=== PATIENT | male | born 1990 | race Caucasian/White ===

== ENCOUNTER → 2020-10-06 10:07 | Outpatient (CLI) | payer OTHER, SELFPAY ==
[2020-10-06 11:09] LABS: Add Manual Diff / Slide Review NO; Basophils Absolute Auto 0 /uL (0-100); Basophils Percent Auto 0.6 % (0-2); Eosinophils Absolute Auto 100 /uL (0-450); Eosinophils Percent Auto 1.8 % (2-4); Hemoglobin 13.7 g/dL (13.5-17.5); Lymphocytes Absolute Auto 1600 /uL (1100-4500); Lymphocytes Percent Auto 35.6 % (25-40); Mean Corpuscular HGB Conc 33.3 % (30-36); Mean Corpuscular Hemoglobin 28.5 PG (26-34); Mean Corpuscular Volume 85.7 fL (80-100); Monocytes Absolute Auto 400 /uL (0-900); Monocytes Percent Auto 9.5 % (3-14); Neutrophils Absolute Auto 2300 /uL (1500-7000); Neutrophils Percent Auto 52.5 % (50-75); Platelet Count 216 X10^3/uL (150-400); Red Blood Cell Count 4.79 X10^6/uL (4.5-5.9); Red Cell Distribution Width 13.1 % (11.6-14.8); White Blood Cell Count 4.4 X10^3/uL (4.5-11.0)
[2020-10-06 11:22] LABS: Alanine Aminotransferase 14 IU/L (<50); Albumin 4.4 g/dL (3.5-5.0); Albumin Globulin Ratio 1.6 (1.0-2.8); Alkaline Phosphatase 53 U/L (38-126); Aspartate Aminotransferase 23 IU/L (17-59); Bilirubin Total 0.5 mg/dL (0.2-1.3); Blood Urea Nitrogen 18 mg/dL (9-20); Carbon Dioxide 27 mmol/L (22-32); Chloride 103 mmol/L (98-107); Estimated Glomerular Filt Rate > 60.0 mL/min (>60); Globulin 2.8 g/dL (1.7-4.1); Glucose 95 mg/dL (70-100); HEMOLYSIS < 15 (0-50); Potassium 4.2 mmol/L (3.4-5.1); Sodium 137 mmol/L (137-145); Total Protein 7.2 g/dL (6.3-8.2)
== END ==
PROVIDERS: Referring Provider Physician Assistant; Visit Provider Physician Assistant
DX: K62.5 Hemorrhage of anus and rectum (principal)
CPT/HCPCS: 36415; 80053; 85025

== ENCOUNTER → 2021-01-04 16:27 | Outpatient (CLI) | payer OTHER, SELFPAY ==
[2021-01-04 18:18] LABS: Add Manual Diff / Slide Review NO; Basophils Absolute Auto 0 /uL (0-100); Basophils Percent Auto 0.6 % (0-2); Eosinophils Absolute Auto 100 /uL (0-450); Hematocrit 40.3 % (41-53); Hemoglobin 13.1 g/dL (13.5-17.5); Lymphocytes Absolute Auto 2400 /uL (1100-4500); Lymphocytes Percent Auto 40.9 % (25-40); Mean Corpuscular HGB Conc 32.6 % (30-36); Mean Corpuscular Hemoglobin 26.7 PG (26-34); Monocytes Absolute Auto 500 /uL (0-900); Monocytes Percent Auto 8.6 % (3-14); Neutrophils Absolute Auto 2800 /uL (1500-7000); Neutrophils Percent Auto 47.9 % (50-75); Platelet Count 230 X10^3/uL (150-400); Red Blood Cell Count 4.91 X10^6/uL (4.5-5.9); White Blood Cell Count 5.8 X10^3/uL (4.5-11.0)
== END ==
PROVIDERS: PCP Family Medicine; Referring Provider Family Medicine; Visit Provider Family Medicine
DX: J02.8 Acute pharyngitis due to other specified organisms (principal); B96.89 Other specified bacterial agents as the cause of diseases classified elsewhere
CPT/HCPCS: 36415; 85025

== ENCOUNTER → 2021-05-07 14:30 | Outpatient (CLI) | payer OTHER, SELFPAY ==
[2021-05-07 15:33] LABS: COVID19 -Nasal RAPID Negative (Negative)
== END ==
PROVIDERS: PCP Family Medicine; Visit Provider Physician Assistant
DX: Z20.822 Contact with and (suspected) exposure to COVID-19 (principal)
CPT/HCPCS: 87635

== ENCOUNTER 2022-04-30 18:27 | Emergency (ER) | payer OTHER, SELFPAY ==
[2022-04-30 18:58] VITALS: BP 127/82; PULSE 72; RESP 20; TEMP 36.8; O2SAT 96; BMI 29.2
--- NOTE | 2022-04-30 21:03 | ED_ITS ---
HPI - Skin/Abscess/Foreign Bdy General Chief complaint: Skin/Abscess/Foreign Body Stated complaint: HEMORRHOIDS Time Seen by Provider: 04/30/22 21:03 Source: patient Mode of arrival: Ambulatory History of Present Illness HPI narrative: 31-year-old male smoker with history of chronic hemorrhoids presents to the emergency department for the 2nd time this week with a chief complaint of occasional rectal bleeding, hemorrhoids and rectal pain. He states that he has been having trouble with hemorrhoids for many years and despite his use ov [id number] medications he has ongoing trouble. He states that he routinely has a small hemorrhoid on the left side of his anus but frequently has a right- sided hemorrhoid that seems to go in and out each day. He has been in a sufficient amount of pain that he has been unable to work for least the past few weeks. He had been seen and evaluated by his primary care provider recently and was instructed to present to [facility] Emergency Department to obtain complete workup which was done just a few days ago including labs which were unremarkable and a CT of his abdomen and pelvis with IV contrast demonstrated no significant findings. He is not dizzy nor weak or lightheaded and has had no fever or chills. He denies chest pain or shortness of breath. He denies other abdominal pain, nausea, vomiting or diarrhea. Related Data Home Medications Medication Instructions Recorded Confirmed multivitamin 1 tab PO DAILY 01/04/21 01/04/21 Previous Rx's Medication Instructions Recorded hydrocortisone acetate 25 mg 25 mg AR BID #24 ea 01/04/21 rectal suppository (Anusol-HC) triamcinolone acetonide 0.5 % 1 applic topical BID #15 grams 01/04/21 topical cream dibucaine 1 % rectal ointment 1 applic AR TID PRN rectal 05/01/22 discomfort #56 grams Allergies Allergy/AdvReac Type Severity Reaction Status Date / Time acetaminophen [From Tylenol] Allergy Severe Hives, Verified 04/30/22 19:18 loss of consciousness Fish Containing Products Allergy Severe Head Verified 04/30/22 19:18 swollen Review of Systems Review of Systems Narrative: GENERAL: Denies chills, fatigue, malaise, fever, sweats. HEENT: Denies sinus pain, ear pain, sore throat, difficulty swallowing, dizziness. RESPIRATORY: Denies dyspnea, cough, wheezing, hemoptysis, sputum. CARDIOVASCULAR: Denies chest pain, palpitations, orthopnea, edema, GASTROINTESTINAL: See HPI : Denies dysuria, frequency, incontinence, hematuria, urinary retention. MUSCULOSKELETAL: denies weakness, joint pain, or bony pain SKIN: Denies rash, skin lesions, or other NEUROLOGIC: Denies weakness, headache, numbness, change in speech, confusion, seizures, incoordination. PSYCHIATRIC: No concerning psychosocial issues. 12 point review of systems is negative except for those stated above Patient History Medical History Acute bacterial pharyngitis Contact dermatitis Headache (~2012) Hearing loss Internal hemorrhoid Family History Grandmother Rheumatoid arthritis Social History Smoking Status: Former smoker Smokeless tobacco user: chewing tobacco (2 cans per week ) quit status: considering quitting alcohol intake: current (1 drink per year ) substance use type: marijuana (2 grams per month vape ) Smoking Status: Former smoker Exam Narrative Exam Narrative: GENERAL: [31] year old patient appears stated age. Well-developed patient, in mild distress. Obviously uncomfortable and frustrated, at times tearful HEAD: Atraumatic. Normocephalic. EYES: Pupils equal round and reactive. Extraocular motions intact. No scleral icterus. No injection or drainage. ENT: Nose without bleeding, purulent drainage. Throat without erythema, tonsillar hypertrophy or exudate. Airway patent. NECK: Trachea midline. Non tender CARDIOVASCULAR: Regular rate and rhythm without murmurs, gallops, or rubs. RESPIRATORY: Clear to auscultation. Breath sounds equal bilaterally. No wheezes, rales, or rhonchi. GASTROINTESTINAL: Abdomen soft, non-tender, nondistended. RECTAL: Small external hemorrhoid without evidence of thrombosis. No palpable internal hemorrhoids or active bleeding. No obvious evidence of fissure EXTREMITIES: No edema or joint tenderness. BACK: Nontender without deformity or crepitance. No flank tenderness. NEURO: AOx3. SKIN: No rash or erythema of visible areas Initial Vital Signs Initial Vital Signs: Vital Signs Temperature 98.2 F 04/30/22 18:58 Pulse Rate 72 04/30/22 18:58 Respiratory Rate 20 04/30/22 18:58 Blood Pressure 127/82 04/30/22 18:58 Pulse Oximetry 96 04/30/22 18:58 Oxygen Delivery Method 04/30/22 18:58 Course Orders Ordered: Discontinued Medications Sodium Chloride (Normal Saline 0.9%) 1,000 mls @ 1,000 mls/hr IV BOLUS ONE Stop: 04/30/22 22:14 Last Infusion: 04/30/22 22:40 Dose: 0 mls/hr Documented By: Admin: 04/30/22 21:39 Dose: 1,000 mls/hr Documented By: AP Vital Signs Vital signs: Vital Signs - 8 hr 04/30/22 18:58 Temperature 98.2 F Pulse Rate 72 Respiratory Rate 20 Blood Pressure 127/82 Pulse Oximetry 96 Oxygen Delivery Method Room Air MDM - Skin/Abscess/Foreign Bdy Lab Data Result diagrams: 04/30/22 21:40 04/30/22 21:40 Labs: Lab Results 04/30/22 04/30/22 04/30/22 Range/Units 21:40 21:40 21:40 WBC 8.4 (4.5-11.0) X10^3/uL RBC 5.24 (4.5-5.9) X10^6/uL Hgb 14.9 (13.5-17.5) g/dL Hct 44.8 (41-53) % MCV 85.5 (80-100) fL MCH 28.4 (26-34) PG MCHC 33.3 (30-36) % RDW 13.1 (11.6-14.8) % Plt Count 260 (150-400) X10^3/uL Neut % (Auto) 64.9 (50-75) % Lymph % (Auto) 28.1 (25-40) % [place] % (Auto) 6.1 (3-14) % Eos % (Auto) 0.6 L (2-4) % Baso % (Auto) 0.3 (0-2) % Neut # (Auto) 5400 (7353-7317) /uL Lymph # (Auto) 2400 (7146-3565) /uL [place] # (Auto) 500 (0-900) /uL Eos # (Auto) 100 (0-450) /uL Baso # (Auto) 0 (0-100) /uL Sodium 138 (137-145) mmol/L Potassium 3.6 (3.4-5.1) mmol/L Chloride 99 (98-107) mmol/L Carbon Dioxide 27 (22-32) mmol/L BUN 13 (9-20) mg/dL Creatinine 0.87 (0.66-1.25) mg/dL Estimated GFR > 60 (>60) mL/min BUN/Creatinine Ratio 14.9 (6-22) Glucose 87 (70-100) mg/dL Lactate 1.5 (0.7-2.1) mmol/L Calcium 9.1 (8.4-10.2) mg/dL Total Bilirubin 1.6 H (0.2-1.3) mg/dL AST 20 (17-59) IU/L ALT 19 (<50) IU/L Alkaline Phosphatase 71 (38-126) U/L Total Protein 8.1 (6.3-8.2) g/dL Albumin 4.8 (3.5-5.0) g/dL Globulin 3.3 (1.7-4.1) g/dL Albumin/Globulin Ratio 1.5 (1.0-2.8) Imaging Data CT scan - abdomen/pelvis: Radiologist's Impression: [place] [address] CT Scan Report Signed Patient: Harsha Fink MR#: [id number] : 1990 Acct:[id number] Age/Sex: 31 / M Date of Service: 04/30/22 Loc: ED Accession Number: [id number] ?? Procedure: CT abdomen pelvis w con Ordering Provider: Tyshawn Polo D.O. PROCEDURE:? CT ABDOMEN PELVIS W CON ? INDICATIONS:? severe RLQ pain, worsening rectal pain, not eating ? TECHNIQUE:? After the administration of IV contrast, axial sections were acquired from the l tien bases to the pubic symphysis.? Coronal and sagittal reformats were performed.? For radiation dose reduction, the following was used:? automated exposure control, adjustment of mA and/or kV according to patient size. ? COMPARISON:? [facility], CT, CT ABDOMEN PELVIS WITH CONTRAST, 04/06, 21:45. ? FINDINGS:? Image quality:? Excellent.? ? Lung bases:? Unremarkable.? ? Heart:? No significant findings. ? ? ABDOMEN: Liver:? Hepatic steatosis is present. Gallbladder:? Unremarkable.? ? Biliary ducts:? Unremarkable.? ? Pancreas:? Unremarkable.? ? Spleen:? Unremarkable.? ? Adrenal Glands:? Unremarkable.? ? Kidneys and Ureters:? Unremarkable.? ? ? Stomach and Bowel:? Stomach, small bowel loops, and colon are unremarkable.? Appendix is normal. Peritoneum:? No abnormal intraperitoneal fluid.? No free air.? ? Ventral Wall: ? No hernia.? Abdominal Nodes:? No retroperitoneal or mesenteric adenopathy by size criteria.? Subcentimeter right lower quadrant lymph nodes are present. Vessels:? Aorta and inferior vena cava are normal in size.? ? PELVIS: Pelvic Organs:? Unremarkable.? ? Bladder:? Unremarkable.? ? Pelvic Nodes: No enlarged lymph nodes.? Miscellaneous: No inguinal hernias are seen. ? ? ? Bones:? Unremarkable.? IMPRESSION:? ? Stable interval exam. ? Appendix is normal.? Several scattered subcentimeter right lower quadrant lymph nodes are unchanged.? Given normal appendix, this could be related to mesenteric adenitis and recommend clinical correlation. ? ? Dictated by: Beata Croft M.D. on 04/30/2022 at 22:32 ? ? Approved by: Beata Croft M.D. on 04/30/2022 at 22:34 ? MDM Narrative Medical decision making narrative: [31-year-old male with history of hemorrhoids presents with rectal pain] Multiple etiologies for patient's symptoms considered including, but not limited to: [Hemorrhoid, thrombosed hemorrhoid, fissure, perirectal abscess, foreign body versus other] Prior Charts reviewed: Including recent emergency department visit at [facility] Labs reviewed and interpreted by myself: No significant abnormal findings Imaging reviewed: No significant findings such as appendicitis, perforation, bowel obstruction or perirectal abscess, there are scattered lymph nodes in the right lower quadrant which may be consistent with mesenteric adenitis, however patient does not have pain in the right lower quadrant Patient's symptoms improved over duration of stay with above-stated therapies. Findings and discharge diagnosis discussed with patient/family followed by verbalization of understanding Return precautions discussed with patient/family whom verbalize understanding of diagnosis and plan Discharge Plan Departure Patient Disposition: Home Clinical Impression: Hemorrhoid, Anal or rectal pain Instructions: DI for Hemorrhoids Activity Restrictions/Additional Instructions: *You have been diagnosed with [rectal pain with small external hemorrhoid. Lab work and CT scan are very reassuring and there is no evidence of diverticulitis, abscess, bowel obstruction or other] *What to do: *Please continue to take your regular medications as directed. [ x] New medication prescriptions sent to your pharmacy: [[facility]] [ ] New medication written as a paper prescription [ ] No new medications given *Please follow up with your primary care provider in 2-3 days, call for an appointment. Let them know you were seen in the Emergency Department and that we ask that you be seen in follow up. We will electronically transmit a record of today's note if your PCP is in our system * as we discussed, please consider the use of daily [id number] stool softener such as MiraLax which can help reduce the likelihood of you straining on the toilet which will certainly worsened your symptoms. *Return to Emergency Department if you should have any new, worsening or concerning symptoms, such as [fever greater than 101 F, shaking chills, worsening pain, persistent vomiting or other bothersome symptoms] Prescriptions: New dibucaine 1 % ointment 1 applic AR TID PRN (Reason: rectal discomfort) Qty: 56 0RF No Action multivitamin Tablet 1 tab PO DAILY triamcinolone acetonide 0.5 % cream 1 applic topical BID Qty: 15 1RF Rx Instructions: apply to affected areas hydrocortisone acetate [Anusol-HC] 25 mg suppository 25 mg AR BID Qty: 24 1RF Rx Instructions: use prn hemorrhoids Referrals: Kim Brothers MD [Physician] - Neil Osei DO [Primary Care Provider] - Visit Report Forms: Patient Portal/API
--- NOTE | 2022-04-30 21:15 | DI.CT.S_ITS ---
PROCEDURE: CT ABDOMEN PELVIS W CON INDICATIONS: severe RLQ pain, worsening rectal pain, not eating TECHNIQUE: After the administration of IV contrast, axial sections were acquired from the lung bases to the pubic symphysis. Coronal and sagittal reformats were performed. For radiation dose reduction, the following was used: automated exposure control, adjustment of mA and/or kV according to patient size. COMPARISON: [facility], CT, CT ABDOMEN PELVIS WITH CONTRAST, 04/26/2022, 21:45. FINDINGS: Image quality: Excellent. Lung bases: Unremarkable. Heart: No significant findings. ABDOMEN: Liver: Hepatic steatosis is present. Gallbladder: Unremarkable. Biliary ducts: Unremarkable. Pancreas: Unremarkable. Spleen: Unremarkable. Adrenal Glands: Unremarkable. Kidneys and Ureters: Unremarkable. Stomach and Bowel: Stomach, small bowel loops, and colon are unremarkable. Appendix is normal. Peritoneum: No abnormal intraperitoneal fluid. No free air. Ventral Wall: No hernia. Abdominal Nodes: No retroperitoneal or mesenteric adenopathy by size criteria. Subcentimeter right lower quadrant lymph nodes are present. Vessels: Aorta and inferior vena cava are normal in size. PELVIS: Pelvic Organs: Unremarkable. Bladder: Unremarkable. Pelvic Nodes: No enlarged lymph nodes. Miscellaneous: No inguinal hernias are seen. Bones: Unremarkable. IMPRESSION: Stable interval exam. Appendix is normal. Several scattered subcentimeter right lower quadrant lymph nodes are unchanged. Given normal appendix, this could be related to mesenteric adenitis and recommend clinical correlation. Dictated by: Beata Croft M.D. on 04/30/2022 at 22:32 Approved by: Beata Croft M.D. on 04/30/2022 at 22:34
[2022-04-30] MEDS: SODIUM CHLORIDE 0.9% 1,000 ML 1000 ML IV (21:39)
[2022-04-30 21:48] LABS: Add Manual Diff / Slide Review NO; Basophils Absolute Auto 0 /uL (0-100); Basophils Percent Auto 0.3 % (0-2); Eosinophils Absolute Auto 100 /uL (0-450); Eosinophils Percent Auto 0.6 % (2-4); Hematocrit 44.8 % (41-53); Hemoglobin 14.9 g/dL (13.5-17.5); Lymphocytes Absolute Auto 2400 /uL (1100-4500); Lymphocytes Percent Auto 28.1 % (25-40); Mean Corpuscular HGB Conc 33.3 % (30-36); Mean Corpuscular Hemoglobin 28.4 PG (26-34); Mean Corpuscular Volume 85.5 fL (80-100); Monocytes Absolute Auto 500 /uL (0-900); Monocytes Percent Auto 6.1 % (3-14); Neutrophils Absolute Auto 5400 /uL (1500-7000); Neutrophils Percent Auto 64.9 % (50-75); Platelet Count 260 X10^3/uL (150-400); Red Blood Cell Count 5.24 X10^6/uL (4.5-5.9); Red Cell Distribution Width 13.1 % (11.6-14.8); White Blood Cell Count 8.4 X10^3/uL (4.5-11.0)
[2022-04-30 21:58] LABS: Alanine Aminotransferase 19 IU/L (<50); Albumin 4.8 g/dL (3.5-5.0); Albumin Globulin Ratio 1.5 (1.0-2.8); Alkaline Phosphatase 71 U/L (38-126); Aspartate Aminotransferase 20 IU/L (17-59); BUN Creatinine Ratio 14.9 (6-22); Bilirubin Total 1.6 mg/dL (0.2-1.3); Blood Urea Nitrogen 13 mg/dL (9-20); Calcium 9.1 mg/dL (8.4-10.2); Carbon Dioxide 27 mmol/L (22-32); Chloride 99 mmol/L (98-107); Estimated Glomerular Filt Rate > 60 mL/min (>60); Globulin 3.3 g/dL (1.7-4.1); Glucose 87 mg/dL (70-100); HEMOLYSIS < 15 (0-50); Lactate (Lactic Acid) 1.5 mmol/L (0.7-2.1); Potassium 3.6 mmol/L (3.4-5.1); Sodium 138 mmol/L (137-145); Total Protein 8.1 g/dL (6.3-8.2)
[2022-05-01 01:04] VITALS: BP 128/74; PULSE 78; RESP 18; TEMP 36.4; O2SAT 98
== END 2022-05-01 01:05 | disposition home or self-care (01) ==
PROVIDERS: Emergency Provider Emergency Medicine; PCP Family Medicine
DX: K64.9 Unspecified hemorrhoids (principal); K62.89 Other specified diseases of anus and rectum
CPT/HCPCS: 36415; 74177; 80053; 83605; 85025; 96360; 99284; Q9967

== ENCOUNTER 2023-11-14 08:12 | Emergency (ER) | payer OTHER, SELFPAY ==
[2023-11-14] VITALS (13 sets, daily range): BP systolic 113–149; BP diastolic 57–88; PULSE 59–88; RESP 16–18; TEMP 36.8; O2SAT 96–100; BMI 28.5
[2023-11-14] MEDS: cefTRIAXone 1,000 MG in SODIUM CHLORIDE 0.9% 100 ML 200 MG IV (08:26)
[2023-11-14] MEDS: SODIUM CHLORIDE 0.9% 1,000 ML 1000 ML IV (08:27)
[2023-11-14] MEDS: DEXAMETHASONE 10 MG/ML VIAL IV (08:27)
[2023-11-14 08:37] LABS: Add Manual Diff / Slide Review NO; Basophils Absolute Auto 0 /uL (0-100); Basophils Percent Auto 0.6 % (0-2); Eosinophils Absolute Auto 200 /uL (0-450); Eosinophils Percent Auto 2.5 % (2-4); Hematocrit 43.7 % (41-53); Lymphocytes Absolute Auto 2900 /uL (1100-4500); Lymphocytes Percent Auto 38.8 % (25-40); Mean Corpuscular HGB Conc 34.2 % (30-36); Mean Corpuscular Hemoglobin 29.4 PG (26-34); Mean Corpuscular Volume 85.9 fL (80-100); Monocytes Absolute Auto 600 /uL (0-900); Monocytes Percent Auto 8.2 % (3-14); Neutrophils Absolute Auto 3800 /uL (1500-7000); Neutrophils Percent Auto 49.9 % (50-75); Platelet Count 216 X10^3/uL (150-400); Red Blood Cell Count 5.09 X10^6/uL (4.5-5.9); Red Cell Distribution Width 12.9 % (11.6-14.8); White Blood Cell Count 7.6 X10^3/uL (4.5-11.0)
--- NOTE | 2023-11-14 08:48 | PC.NURSE ---
Pt arrived to ED today with c/o swollen uvula, sore throat and unable to swallow saliva. Voice muffled and pt using emisis bag to spit. Pt reports that he was working yesterday and there was a lot of black dust in the air. Went home from work and felt fine but woke up around 11pm feeling like he had a phlegm ball in his throat but could not swallow. Pt woke up this morning and noticed that his uvula was completely swollen. Considerable edema noted in uvula. Pt denies any n/v, sob, difficult breathing or cp. Pt a&ox4.
[2023-11-14 08:54] LABS: Alanine Aminotransferase 35 IU/L (<50); Albumin 4.4 g/dL (3.5-5.0); Albumin Globulin Ratio 1.5 (1.0-2.8); Alkaline Phosphatase 62 U/L (38-126); Aspartate Aminotransferase 33 IU/L (17-59); BUN Creatinine Ratio 14.3 (6-22); Bilirubin Total 0.6 mg/dL (0.2-1.3); Blood Urea Nitrogen 14 mg/dL (9-20); Calcium 8.8 mg/dL (8.4-10.2); Carbon Dioxide 27 mmol/L (22-32); Chloride 108 mmol/L (98-107); Estimated Glomerular Filt Rate > 60 mL/min (>60); Globulin 2.9 g/dL (1.7-4.1); Glucose 103 mg/dL (70-100); HEMOLYSIS 24 (0-50); Potassium 4.2 mmol/L (3.4-5.1); Sodium 141 mmol/L (137-145); Total Protein 7.3 g/dL (6.3-8.2)
[2023-11-14] MEDS: RACEPINEPHRINE 0.5 ML NEB INH (09:06)
--- NOTE | 2023-11-14 09:34 | ED.URI ---
HPI - URI/Sore Throat General Chief Complaint: Upper Respiratory Symptoms Stated Complaint: diff breathing, throat swelling Time Seen by Provider: 11/14/23 08:14 Source: patient Mode of arrival: Ambulatory History of Present Illness HPI Narrative: Patient is a 33-year-old healthy male presents today with difficulty breathing. 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 However this morning he woke up felt like he was choking on his uvula he is able to swallow but feels his uvula hanging down on his tongue. It is causing him to gag. He is able to manage his secretions Related Data Home Medications Medication Instructions Recorded Confirmed multivitamin 1 tab PO DAILY 01/04/21 01/04/21 Previous Rx's Medication Instructions Recorded hydrocortisone acetate 25 mg 25 mg CA BID #24 ea 01/04/21 rectal suppository (Anusol-HC) triamcinolone acetonide 0.5 % 1 applic topical BID #15 grams 01/04/21 topical cream dibucaine 1 % rectal ointment 1 applic CA TID PRN rectal 05/01/22 discomfort #56 grams prednisone 20 mg tablet 40 mg (2 x 20 mg) PO DAILY #10 tabs 11/14/23 Allergies Allergy/AdvReac Type Severity Reaction Status Date / Time acetaminophen [From Tylenol] Allergy Severe Hives, Verified 11/14/23 08:21 loss of consciousness Fish Containing Products Allergy Severe Head Verified 11/14/23 08:21 swollen Patient History Medical History Hearing loss Headache (~2012) Contact dermatitis Internal hemorrhoid Acute bacterial pharyngitis Family History Grandmother Rheumatoid arthritis Social History Smoking Status: Current every day smoker Smokeless tobacco user: chewing tobacco (2 cans per week ) quit status: considering quitting alcohol intake: current (1 drink per year ) substance use type: marijuana (2 grams per month vape ) Smoking Status: Current every day smoker tobacco type: smokeless tobacco Substance Use Type: does not use Exam Initial Vital Signs Initial Vital Signs: Vital Signs Pulse Rate 70 11/14/23 08:17 Pulse Oximetry 99 11/14/23 08:17 GENERAL: Alert 33-year-old male sitting tripoding HEENT: Head atraumatic,EOMI, pupils reactive, face symmetric, moist mucous membranes PHARYNX: Airway is patent uvula is swollen no significant enlarged tonsils or exudate CARDIOVASCULAR: Regular rate and rhythm without murmurs, rubs or gallops. RESPIRATORY: Breath sounds equal bilaterally, no wheezes rales or rhonchi. EXTREMITIES: Normal range of motion, no clubbing or edema. Neurovascularly intact NEUROLOGICAL: Alert and oriented x4. SKIN: Warm, dry, no laceration, no petechiae, no rashes or lesions. Course Orders Ordered: ED Orders 11/14/23 08:20 CBC Auto Diff [Complete Blood Count AUTO DIFF] Stat CMP [Comprehensive Metabolic Panel] Stat 11/14/23 08:38 Respiratory Panel (Film Array) Stat Discontinued Medications Dexamethasone (Dexamethasone 10 Mg/Ml Vial) 10 mg IV NOW ONE Stop: 11/14/23 08:19 Last Admin: 11/14/23 08:27 Dose: 10 mg Documented By: ROSS Epinephrine (Racepinephrine 0.5 Ml Neb) 0.5 ml INH NOW ONE Stop: 11/14/23 08:53 Last Admin: 11/14/23 09:06 Dose: 0.5 ml Documented By: AMAN Sodium Chloride (Normal Saline 0.9%) 1,000 mls @ 1,000 mls/hr IV BOLUS ONE Stop: 11/14/23 09:17 Last Infusion: 11/14/23 10:20 Dose: Infused Documented By: Admin: 11/14/23 08:27 Dose: 1,000 mls/hr Documented By: ROSS Ceftriaxone Sodium 1,000 mg/ (Sodium Chloride) 100 mls @ 200 mls/hr IV NOW ONE Stop: 11/14/23 08:22 Last Infusion: 11/14/23 09:09 Dose: Infused Documented By: Admin: 11/14/23 08:26 Dose: 200 mls/hr Documented By: ROSS Vital Signs Vital signs: Vital Signs - 8 hr 11/14/23 08:17 11/14/23 08:18 11/14/23 08:30 Temperature 98.2 F Pulse Rate 70 71 63 Respiratory Rate 18 Blood Pressure 149/88 H Pulse Oximetry 99 100 97 Oxygen Delivery Method Room Air 11/14/23 08:31 11/14/23 08:31 11/14/23 09:00 Temperature Pulse Rate 64 Respiratory Rate Blood Pressure 137/83 118/83 Pulse Oximetry 96 Oxygen Delivery Method 11/14/23 09:00 11/14/23 09:09 11/14/23 09:30 Temperature Pulse Rate 59 L 88 Respiratory Rate 16 Blood Pressure 120/77 Pulse Oximetry 99 98 Oxygen Delivery Method Room Air 11/14/23 09:30 11/14/23 10:00 11/14/23 10:00 Temperature Pulse Rate 66 66 Respiratory Rate Blood Pressure 118/81 Pulse Oximetry 97 99 Oxygen Delivery Method 11/14/23 10:30 11/14/23 10:30 11/14/23 11:00 Temperature Pulse Rate 60 59 L Respiratory Rate Blood Pressure 126/78 Pulse Oximetry 96 97 Oxygen Delivery Method 11/14/23 11:01 11/14/23 11:01 11/14/23 11:30 Temperature Pulse Rate 60 62 Respiratory Rate Blood Pressure 122/66 Pulse Oximetry 98 97 Oxygen Delivery Method 11/14/23 11:30 11/14/23 12:00 11/14/23 12:00 Temperature Pulse Rate 65 Respiratory Rate Blood Pressure 113/69 118/57 L Pulse Oximetry 97 Oxygen Delivery Method MDM - URI/Sore Throat Lab Data 11/14/23 08:20 11/14/23 08:20 Labs: Lab Results 11/14/23 11/14/23 Range/Units 08:20 08:38 WBC 7.6 (4.5-11.0) X10^3/uL RBC 5.09 (4.5-5.9) X10^6/uL Hgb 15.0 (13.5-17.5) g/dL Hct 43.7 (41-53) % MCV 85.9 (80-100) fL MCH 29.4 (26-34) PG MCHC 34.2 (30-36) % RDW 12.9 (11.6-14.8) % Plt Count 216 (150-400) X10^3/uL Neut % (Auto) 49.9 L (50-75) % Lymph % (Auto) 38.8 (25-40) % [place] % (Auto) 8.2 (3-14) % Eos % (Auto) 2.5 (2-4) % Baso % (Auto) 0.6 (0-2) % Neut # (Auto) 3800 (4496-9045) /uL Lymph # (Auto) 2900 (6421-4449) /uL [place] # (Auto) 600 (0-900) /uL Eos # (Auto) 200 (0-450) /uL Baso # (Auto) 0 (0-100) /uL Sodium 141 (137-145) mmol/L Potassium 4.2 (3.4-5.1) mmol/L Chloride 108 H (98-107) mmol/L Carbon Dioxide 27 (22-32) mmol/L BUN 14 (9-20) mg/dL Creatinine 0.98 (0.66-1.25) mg/dL Estimated GFR > 60 (>60) mL/min BUN/Creatinine Ratio 14.3 (6-22) Glucose 103 H (70-100) mg/dL Calcium 8.8 (8.4-10.2) mg/dL Total Bilirubin 0.6 (0.2-1.3) mg/dL AST 33 (17-59) IU/L ALT 35 (<50) IU/L Alkaline Phosphatase 62 (38-126) U/L Total Protein 7.3 (6.3-8.2) g/dL Albumin 4.4 (3.5-5.0) g/dL Globulin 2.9 (1.7-4.1) g/dL Albumin/Globulin Ratio 1.5 (1.0-2.8) Chlamy pneumoniae PCR Not detected (Not Detect) Adenovirus (PCR) Not detected (Not Detect) B.parapertussis DNA PCR Not detected (Not Detecte) Coronavirus OC43 (PCR) Not detected (Not Detect) Coronavirus HKU1 (PCR) Not detected (Not Detect) Coronavirus 229E (PCR) Not detected (Not Detect) SARS-CoV-2 (PCR) Not detected (Not Detecte) Coronavirus NL63 (PCR) Not detected (Not Detect) Human Metapneumovir PCR Not detected (Not Detect) Influenza Type A (PCR) Not detected (Not Detect) Influenza Type B (PCR) Not detected (Not Detect) M. pneumoniae (PCR) Not detected (Not Detect) Parainfluenza 1 (PCR) Not detected (Not Detect) Parainfluenza 2 (PCR) Not detected (Not Detect) Parainfluenza 3 (PCR) Not detected (Not Detect) Parainfluenza 4 (PCR) Not detected (Not Detect) RSV (PCR) Not detected (Not Detect) Entero/Rhino (PCR) Not detected (Not Detect) MDM Narrative Medical decision making narrative: Patient 33-year-old male immunizations up-to-date presents today with acute epiglottitis. Initially sitting over bed gagging but not actually vomiting. He can manage some secretions. Airway does appear pain on exam uvula is swollen. He is given a L of fluid dexamethasone and Rocephin. Still is having some muffled voice. Racemic epi was nebulized and he had much improvement. Now able to sit upright 10:41 patient is able to sit upright he is swallowing secretions managing p.o. fluids 12:08 patient is tolerating fluids continues to maintain airway and managing secretions is overall feeling better. Discussed strict return precautions Patient is immunized so low risk for Haemophilus influenza Critical Care Time Critical Care Time Critical Care Time: Yes Total Critical Care Time: 35 Attestation: The high probability of a clinically significant, sudden or life threatening deterioration of the respiratory system(s) required my full and direct attention, intervention and personal management. The aggregate critical care time was 35 minutes. This time is in addition to time spent performing reported procedures but includes the following: [x] Data Review and interpretation [x] Patient assessment and monitoring of vital signs [x] Documentation [x] Medication orders and management Discharge Plan Departure Patient Disposition: Home Clinical Impression: Acute epiglottitis Instructions: DI for Esophagitis Activity Restrictions/Additional Instructions: *You have been diagnosed with epiglottitis *What to do: At this time I do recommend called soft foods and liquids. This will take a couple days to clear up. If at any point you should notice it it is harder for you to breathe or swallow please return to the emergency department as soon as possible *Continue to take medications as directed Prednisone 40 mg once a day for 5 days *Follow up with your primary care provider in 2-3 days or call [phone] *Return to ER if you should have increased difficulty breathing inability to swallow your own spit increased pain not tolerating fluids [or] any new, worsening or concerning symptoms Prescriptions: New prednisone 20 mg tablet 40 mg PO DAILY Qty: 10 0RF No Action multivitamin Tablet 1 tab PO DAILY triamcinolone acetonide 0.5 % cream 1 applic topical BID Qty: 15 1RF Rx Instructions: apply to affected areas hydrocortisone acetate [Anusol-HC] 25 mg suppository 25 mg CA BID Qty: 24 1RF Rx Instructions: use prn hemorrhoids dibucaine 1 % ointment 1 applic CA TID PRN (Reason: rectal discomfort) Qty: 56 0RF Referrals: Neil Osei, [Primary Care Provider] - Stand Alone Forms: Patient Portal/API
[2023-11-14 10:10] LABS: Adenovirus Not Detected (Not Detect); B. parapertussis Not Detected (Not Detecte); Bordetella pertussis Not Detected (Not Detect); Chlamydophila pneumoniae Not Detected (Not Detect); Coronavirus 229E Not Detected (Not Detect); Coronavirus HKU1 Not Detected (Not Detect); Coronavirus NL 63 Not Detected (Not Detect); Coronavirus OC43 Not Detected (Not Detect); Human Metapneumovirus Not Detected (Not Detect); Human Rhinovirus/Enterovirus Not Detected (Not Detect); Influenza A Not Detected (Not Detect); Influenza B Not Detected (Not Detect); Mycoplasma pneumoniae Not Detected (Not Detect); Parainfluenza Virus 1 Not Detected (Not Detect); Parainfluenza Virus 2 Not Detected (Not Detect); Parainfluenza Virus 3 Not Detected (Not Detect); Parainfluenza Virus 4 Not Detected (Not Detect); Respiratory Syncytial Virus Not Detected (Not Detect); SARS- CoV-2 Not Detected (Not Detecte)
--- NOTE | 2023-11-14 10:50 | PC.NURSE ---
0999 Pt reports that he feels better and like his uvula is less swollen. Pt voice less muffled. 1051 Pt voice no longer muffled. Pt able to swallow liquids and manage saliva.
--- NOTE | 2023-11-14 11:53 | PC.NURSE ---
Pt continues to improve. States that he feels much better than when he came in and is able to swallow liquids. Pt voice no longer muffled and gurgly.
== END 2023-11-14 12:21 | disposition home or self-care (01) ==
PROVIDERS: Emergency Provider Emergency Medicine; PCP Family Medicine
DX: J05.10 Acute epiglottitis without obstruction (principal); F17.200 Nicotine dependence, unspecified, uncomplicated
CPT/HCPCS: 36415; 80053; 85025; 87633; 94640; 96365; 96375; 99284; 99291; J0696; J1100